=== PATIENT | female | born 1960 | race Caucasian/White ===

== ENCOUNTER → 2019-07-28 07:00 | Outpatient (CLI) | payer OTHER, SELFPAY ==
--- NOTE | ~2019-07-28 | MM_ITS ---
EXAMINATION: MM screening norberto BI w anshul HISTORY: Screening mammogram TECHNIQUE: Craniocaudal and mediolateral oblique 3-D tomosynthesis images were obtained and synthetic 2-D images were generated. CAD analysis was submitted and interpreted. COMPARISON: 05/19/2018, 04/05/2017, 05/13/2015 bilateral digital screening mammogram examinations BREAST PARENCHYMAL COMPOSITION: The breasts are heterogeneously dense, which may obscure small masses . FINDINGS: There is no evidence of suspicious mass, calcification, or architectural distortion to sugg est malignancy in either breast. There has been no suspicious interval change. IMPRESSION: 1. No mammographic evidence of malignancy. 2. Recommend routine screening mammography in one year. BI-RADS Category 1: Negative Reviewed, dictated and finalized at location A. ETHYLENE COMBINER
== END ==
PROVIDERS: Visit Provider Obstetrics & Gynecology Gynecology
DX: Z12.31 Encounter for screening mammogram for malignant neoplasm of breast (principal)
CPT/HCPCS: 77063; 77067

== ENCOUNTER 2019-08-28 13:45 | Emergency (ER) | payer OTHER, SELFPAY ==
[2019-08-28 14:00] VITALS: BP 122/74; PULSE 93; RESP 18; TEMP 36.6; O2SAT 99
--- NOTE | 2019-08-28 14:03 | ED.SKABFB ---
HPI - Skin/Abscess/Foreign Bdy General Chief complaint: Skin/Abscess/Foreign Body Stated complaint: face break out Time Seen by Provider: 08/28/19 14:03 Source: patient and RN notes reviewed History of Present Illness HPI narrative: Patient is a 58-year-old female that presents the urgent care with complaints of a breakout to the face. Patient states she is had a small zit to the chin and then it broke out on the forehead. Patient states it is painful to touch. Patient is been putting Neosporin on it. Patient also reports of a sore throat. States that symptoms started on Wednesday. Denies of any known fevers. No acute distress noted. Patient read the plan of care. Related Data Home Medications Medication Instructions Recorded Confirmed levothyroxine [Synthroid] 100 mcg PO DAILY 08/28/19 08/28/19 Allergies Allergy/AdvReac Type Severity Reaction Status Date / Time No Known Allergies Allergy Verified 08/28/19 14:07 Review of Systems Review of Systems: Narrative: CONSTITUTIONAL: Denies fever, chills, or sweats. EYES: Denies visual changes, redness, or discharge. ENT: Reports of sore throat CARDIOVASCULAR: Denies chest pain, palpitations, or edema. RESPIRATORY: Denies cough or dyspnea. GASTROINTESTINAL: Denies abdominal pain, nausea, vomiting, or diarrhea. GENITOURINARY: Denies dysuria or hematuria. SKIN: Reports of oozing lesions on the face MUSCULOSKELETAL: Denies back pain, joint pain, or myalgia. NEUROLOGIC: Denies headache, numbness, or weakness. All other systems reviewed are negative, except as documented in HPI. PMFSH Comments At the time of my signature, I reviewed and agree with the nursing past medical, surgical, social, and family history. There is no relevant family history pertinent to the patient complaint. Exam Narrative: Exam Narrative: GENERAL: This is a well-nourished, well-developed patient, in no apparent distress. HEAD: normocephalic, atraumatic. EYES: PERRL. Sclera clear/white. Vision is grossly intact. EARS: External ears normal NOSE: External nose normal with no obvious nasal discharge, nares without redness, no rhinorrhea. THROAT: Mucous membranes moist, moderate erythema noted posterior oropharynx with moderate postnasal drainage. NECK: Neck supple CARDIOVASCULAR: Regular rate and rhythm without murmurs, gallops, or rubs. RESPIRATORY: Clear to auscultation. Breath sounds equal bilaterally. No wheezes, rales, or rhonchi. SKIN: Multiple oozing/pustular, crusted lesions noted to the forehead, nose, chin?lesions cross the midline. NEURO: awake, alert, and oriented to person, place and time. There were no obvious focal neurologic abnormalities. EXTREMITIES: No clubbing, cyanosis, or edema. Course Vital Signs Vital signs: Vital Signs Temperature 98 F 08/28/19 14:00 Pulse Rate 93 08/28/19 14:00 Respiratory Rate 18 08/28/19 14:00 Blood Pressure 122/74 08/28/19 14:00 Pulse Oximetry 99 08/28/19 14:00 Temperature 98 F 08/28/19 14:00 Pulse Rate 93 08/28/19 14:00 Respiratory Rate 18 08/28/19 14:00 Blood Pressure 122/74 08/28/19 14:00 Pulse Oximetry 99 08/28/19 14:00 Reviewed MDM - Skin/Abscess/Foreign Bdy MDM Narrative Medical decision making narrative: Reviewed lab results with the patient. She is aware that strep swab was negative. Educated her on culture we will call within 72 hours if culture is positive and antibiotics are necessary. Advised the patient to complete oral antibiotic for impetigo. Make sure to eat and drink with the medication and avoid dairy products with the pill. Use cream as directed applying with gloves or Q-tip. Use a warm wash rag and plain soap to wash the face twice a day. Make sure to use a new wash rag with each wash. Follow-up with PCP within 2 to 5 days or for worsening symptoms or failure to improve. Differential Diagnosis Differential diagnosis: Likely abscess of skin or subcutaneous tissue, viral exanthem, dermatophytosis,
== END 2019-08-28 14:25 | disposition home or self-care (01) ==
PROVIDERS: Emergency Provider Nurse Practitioner Family
DX: L01.00 Impetigo, unspecified (principal); E03.9 Hypothyroidism, unspecified
CPT/HCPCS: 87081; 87880; 99213; G0463

== ENCOUNTER → 2020-08-02 10:17 | Outpatient (CLI) | payer OTHER, SELFPAY ==
--- NOTE | ~2020-08-02 | DEXA_ITS ---
Bone Density Report Name: Katie Tang Age: 59 Sex: Female Ethnicity: White Date of : 1960 Indication: osteopenia; postmenopausal Referring Provider: DEBORAH, SULAIMAN Study: Bone densitometry was performed. Exam Date: August 02, 2020 Accession number: [id number] Bone Density: Region BMD T-score Z-score Classification AP Spine (L1-L4) 0.899 -1.3 0.0 Osteopenia Femoral Neck (Left) 0.731 -1.1 0.2 Osteopenia Total Hip (Left) 0.827 -0.9 -0.1 Normal Femoral Neck (Right) 0.691 -1.4 -0.2 Osteopenia Total Hip (Right) 0.804 -1.1 -0.3 Osteopenia Total Hip Mean 0.816 -1.0 -0.2 Normal World Health Organization criteria for BMD impression classify patients as: Normal (T-score at or above -1.0), Osteopenia (T-score between -1.0 and -2.5), or Osteoporosis (T-score at or below -2.5). 10-year Fracture Risk(1): Major Osteoporotic Fracture 7.5% Hip Fracture 0.6% Reported Risk Factors: [place] (), Neck BMD=0.691, BMI=26.2 (1) FRAX(R) Version 3.08. Fracture probability calculated for an untreated patient. Fracture probability may be lower if the patient has received treatment. Previous Exams: Region Exam Age BMD T-score BMD Change BMD Change Date g/cm2 vs Baseline vs Previous AP Spine(L1-L4) 08/02/2020 59 0.899 -1.3 -0.054* 0.009 02/25/2018 57 0.890 -1.4 -0.063* 0.018 05/13/2015 54 0.872 -1.6 -0.081* -0.081* 04/22/2011 50 0.953 -0.9 Total Hip(Left) 08/02/2020 59 0.827 -0.9 -0.031* -0.050* 02/25/2018 57 0.877 -0.5 0.019 0.003 05/13/2015 54 0.874 -0.6 0.016 0.016 04/22/2011 50 0.858 -0.7 Total Hip(Right) 08/02/2020 59 0.804 -1.1 -0.067* -0.026 02/25/2018 57 0.830 -0.9 -0.041* -0.008 05/13/2015 54 0.838 -0.8 -0.033* -0.033* 04/22/2011 50 0.872 -0.6 *Denotes significance at 95% confidence level, LSC for AP Spine = 0.022 g/cm2, LSC for Total Hip = 0.027 g/cm2 Clinical Information Provided by Patient: Has used the following medications: Vitamin D Patient maximum height was 65.5 Menopause Age: 50 No regular weight bearing exercise Drinks caffeinated beverages Onset of menses at age 17 Number of children 3 Impression: The patient has low bone mass, based on the Right Femoral Neck T-score. The patient has an estimated
--- NOTE | ~2020-08-02 | MM_ITS ---
EXAMINATION: MM screening norberto BI w anshul HISTORY: Screening TECHNIQUE: Craniocaudal and mediolateral oblique 3-D tomosynthesis images were obtained and synthetic 2-D images were generated. CAD analysis was submitted and interpreted. COMPARISON: Comparison to multiple prior studies sequentially, with oldest reviewed study dated 04/16. BREAST PARENCHYMAL COMPOSITION: The breasts are heterogeneously dense, which may obscure small masses . FINDINGS: There is no evidence of suspicious mass, calcification, or architectural distortion to sugg est malignancy in either breast. There has been no suspicious interval change. IMPRESSION: 1. No mammographic evidence of malignancy. 2. Recommend routine screening mammography in one year. BI-RADS Category 1: Negative Reviewed, dictated and finalized at location A. CREWMEMBER
== END ==
PROVIDERS: Visit Provider Nurse Practitioner
DX: Z12.31 Encounter for screening mammogram for malignant neoplasm of breast (principal); Z78.0 Asymptomatic menopausal state; M85.89 Other specified disorders of bone density and structure, multiple sites
CPT/HCPCS: 77063; 77067; 77080

== ENCOUNTER → 2021-09-10 15:01 | Outpatient (CLI) | payer OTHER, SELFPAY ==
--- NOTE | ~2021-09-10 | MM_ITS ---
EXAMINATION: MM screening norberto BI w anshul HISTORY: Screening mammogram, family history of breast cancer in her sister. TECHNIQUE: Craniocaudal and mediolateral oblique 3-D tomosynthesis images were obtained and synthetic 2-D images were generated. CAD analysis was submitted and interpreted. COMPARISON: 08/02/2020, 07/28/2019, 05/19/2018 BREAST PARENCHYMAL COMPOSITION: The breasts are heterogeneously dense, which may obscure small masses . FINDINGS: There is no suspicious mass, calcification, or architectural distortion to suggest malignan cy in either breast. There has been no suspicious interval change. IMPRESSION: 1. No mammographic evidence of malignancy. 2. Recommend routine screening mammography in one year. BI-RADS Category 1: Negative Reviewed, dictated and finalized at location A.
== END ==
PROVIDERS: Visit Provider Obstetrics & Gynecology Gynecology
DX: Z12.31 Encounter for screening mammogram for malignant neoplasm of breast (principal)
CPT/HCPCS: 77063; 77067

== ENCOUNTER → 2022-10-23 12:54 | Outpatient (CLI) | payer OTHER, SELFPAY ==
--- NOTE | ~2022-10-23 | DEXA_ITS ---
Bone Density Report Name: JOSE ROSE Age: 62 Sex: Female Ethnicity: White Date of : 1960 Indication: osteopenia; postmenopausal Referring Provider: DEBORAH, SULAIMAN Study: Bone densitometry was performed. Exam Date: October 23, 2022 Accession number: [id number] Bone Density: Region BMD T-score Z-score Classification AP Spine (L1-L4) 0.884 -1.5 0.0 Osteopenia Femoral Neck (Left) 0.721 -1.2 0.2 Osteopenia Total Hip (Left) 0.840 -0.8 0.2 Normal Femoral Neck (Right) 0.682 -1.5 -0.2 Osteopenia Total Hip (Right) 0.801 -1.2 -0.2 Osteopenia Total Hip Mean 0.821 -1.0 0.0 Normal World Health Organization criteria for BMD impression classify patients as: Normal (T-score at or above -1.0), Osteopenia (T-score between -1.0 and -2.5), or Osteoporosis (T-score at or below -2.5). 10-year Fracture Risk(1): Major Osteoporotic Fracture 8.4% Hip Fracture 0.7% Reported Risk Factors: [place] (), Neck BMD=0.682, BMI=25.5 (1) FRAX(R) Version 3.08. Fracture probability calculated for an untreated patient. Fracture probability may be lower if the patient has received treatment. Previous Exams: Region Exam Age BMD T-score BMD Change BMD Change Date g/cm2 vs Baseline vs Previous AP Spine(L1-L4) 10/23/2022 62 0.884 -1.5 -0.069* -0.015 08/02/2020 59 0.899 -1.3 -0.054* 0.009 02/25/2018 57 0.890 -1.4 -0.063* 0.018 05/13/2015 54 0.872 -1.6 -0.081* -0.081* 04/22/2011 50 0.953 -0.9 Total Hip(Left) 10/23/2022 62 0.840 -0.8 -0.018 0.013 08/02/2020 59 0.827 -0.9 -0.031* -0.050* 02/25/2018 57 0.877 -0.5 0.019 0.003 05/13/2015 54 0.874 -0.6 0.016 0.016 04/22/2011 50 0.858 -0.7 Total Hip(Right) 10/23/2022 62 0.801 -1.2 -0.071* -0.003 08/02/2020 59 0.804 -1.1 -0.067* -0.026 02/25/2018 57 0.830 -0.9 -0.041* -0.008 05/13/2015 54 0.838 -0.8 -0.033* -0.033* 04/22/2011 50 0.872 -0.6 *Denotes significance at 95% confidence level, LSC for AP Spine = 0.022 g/cm2, LSC for Total Hip = 0.027 g/cm2 Clinical Information Provided by Patient: Has used the following medications: Vitamin D Patient maximum height was 65.5 Menopause Age: 50 No regular weight bearing exercise Does not regularly consume dairy products Drinks caffeinated beverages
--- NOTE | ~2022-10-23 | MM_ITS ---
EXAMINATION: MM screening norberto BI w anshul HISTORY: Screening mammogram, family history of breast cancer in her sister. TECHNIQUE: Craniocaudal and mediolateral oblique 3-D tomosynthesis images were obtained and synthetic 2-D images were generated. CAD analysis was submitted and interpreted. COMPARISON: 09/10/2021, 08/02/2020, 07/28/2019 BREAST PARENCHYMAL COMPOSITION: The breasts are heterogeneously dense, which may obscure small masses . FINDINGS: No suspicious mass, calcification, or architectural distortion are identified in either kelsea ast to suggest malignancy. There has been no suspicious interval change. IMPRESSION: 1. No mammographic evidence of malignancy. 2. Recommend routine screening mammography in one year. BI-RADS Category 1: Negative Reviewed, dictated and finalized at location A.
== END ==
PROVIDERS: PCP Nurse Practitioner; Visit Provider Nurse Practitioner
DX: Z12.31 Encounter for screening mammogram for malignant neoplasm of breast (principal); M85.88 Other specified disorders of bone density and structure, other site; M85.852 Other specified disorders of bone density and structure, left thigh; M85.851 Other specified disorders of bone density and structure, right thigh
CPT/HCPCS: 77063; 77067; 77080

== ENCOUNTER 2024-02-18 11:29 | Outpatient (CLI) | payer OTHER, SELFPAY ==
--- NOTE | ~2024-02-18 | MM_ITS ---
EXAMINATION: MM screening norberto BI w anshul HISTORY: Screening TECHNIQUE: Craniocaudal and mediolateral oblique 3-D tomosynthesis images were obtained and synthetic 2-D images were generated. CAD analysis was submitted and interpreted. COMPARISON: Comparison to multiple prior studies sequentially, with oldest reviewed study dated 11/2017. BREAST PARENCHYMAL COMPOSITION: Dense: The breasts are heterogeneously dense, which may obscure small masses FINDINGS: There is no evidence of suspicious mass, calcification, or architectural distortion to sugg est malignancy in either breast. There has been no suspicious interval change. IMPRESSION: 1. No mammographic evidence of malignancy. 2. Recommend routine screening mammography in one year. BI-RADS Category 1: Negative Reviewed, dictated and finalized at location B.
== END 2024-02-18 11:30 | disposition home or self-care (01) ==
LOC: MICIMG 11:30
PROVIDERS: PCP Nurse Practitioner Women's Health; Visit Provider Nurse Practitioner Women's Health
DX: Z12.31 Encounter for screening mammogram for malignant neoplasm of breast (principal)
CPT/HCPCS: 77063; 77067

== ENCOUNTER 2024-04-26 06:31 | Day surgery (SDC) | payer OTHER, SELFPAY ==
[2024-03-13 09:44] VITALS: BMI 27.0
[2024-04-10 12:46] VITALS: BMI 25.4
--- NOTE | 2024-04-26 06:40 | WPDANESEPPF ---
Anes - Initial Pre Proc Eval Procedure: Operation Date: 04/26/24 08:30 Proposed Procedures p Diagnostic Colonoscopy - Thomas Moreno MD Date/Time: 04/26/24 06:40 Surgeon: Thomas Moreno MD Pre Op Diagnosis: Other Fecal Abnormalities Patient Data Age: 63 Gender: F Height: 1.68 m Weight: 71.5 kg Allergies Allergy/AdvReac Type Severity Reaction Status Date / Time No Known Allergies Allergy Verified 04/26/24 07:16 Home Medications Medication Instructions Recorded Confirmed Type levothyroxine 100 mcg tablet 100 mcg PO DAILY 08/28/19 04/26/24 History (Synthroid) cholecalciferol (vitamin D3) 50 50 mcg PO DAILY 04/10/24 04/26/24 History mcg (2,000 unit) capsule (Vitamin D3) Patient hx anesthesia problems: none Family hx anesthesia problems: none Results Review: All pre-operative results and documents have been reviewed as part of the pre-operative evaluation. [facility] Social History Social History Smoking status: Never smoker Alcohol intake: current Drinks per week: 1 Substance use type: does not use Living arrangements: with family Spiritual care concerns: No Anes - Eval Final PreProcedure Day of Procedure 04/26/24 06:40 Patient weight: overweight Heart: regular rate and rhythm Lungs: clear to auscultation Airway: Mallampati scale class II Neurological: alert and oriented Last oral intake: >/= 8 hours ASA classification: II Emergent: no Anesthetic plan: proceed Anesthesia type and monitoring: general GIVS and standard monitoring Results Review: All pre-operative results and documents have been reviewed as part of the pre-operative evaluation. Informed Consent: The patient's anesthetic plan and its attendant risks and benefits were discussed with the patient/family/POA. Questions were solicited and answers provided to the satisfaction of the patient/family/POA.
[2024-04-26 07:19] VITALS: BP 113/72; PULSE 77; RESP 17; TEMP 36.2; O2SAT 99; BMI 25.4
[2024-04-26] MEDS: LACTATED RINGERS 1,000 ML 150 ML IV CONT (07:30)
--- NOTE | 2024-04-26 07:43 | PM.HPGS ---
History of Present Illness History of Present Illness Consent: Risks, benefits, and alternatives have been discussed and questions answered. Patient agrees to proceed with procedure. Chief complaint: Positive Cologuard test Narrative: Katie Tang is a 63 year old female referred for colonoscopy. Patient's current weight appetite and bowel movements are normal. She denies abdominal pain. Patient has had no bleeding. Family history is noncontributory. Recent Cologuard test was found to be positive. Review of Systems Review of Systems: All systems reviewed & are unremarkable except as noted in HPI and below PMFSH Social History Social History Smoking status: Never smoker Alcohol intake: current Drinks per week: 1 Substance use type: does not use Living arrangements: with family Spiritual care concerns: No Meds Home Medications and Allergies Home Medications Medication Instructions Recorded Confirmed Type levothyroxine 100 mcg tablet 100 mcg PO DAILY 08/28/19 04/26/24 History (Synthroid) cholecalciferol (vitamin D3) 50 50 mcg PO DAILY 04/10/24 04/26/24 History mcg (2,000 unit) capsule (Vitamin D3) Allergies Allergy/AdvReac Type Severity Reaction Status Date / Time No Known Allergies Allergy Verified 04/26/24 07:16 Vital Signs Vital Signs - 24 hr 04/26/24 07:19 Temperature 97.2 F L Pulse Rate 77 Respiratory Rate 17 Blood Pressure 113/72 Pulse Oximetry 99 Oxygen Delivery Room Air Exam Narrative: Physical exam reveals patient to be alert. Signs stable. HEENT exam is unremarkable. Patient is anicteric. Lungs are clear to auscultation and to percussion. Heart is without murmur or extra sounds. Abdomen bowel sounds are present soft nontender with no organomegaly. Digital external rectal exam is normal. Assessment and Plan Assessment and plan (1) Positive colorectal cancer screening using Cologuard test: Code(s): R19.5 - Other fecal abnormalities Status: Acute Assessment and Plan: Patient recently had Cologuard test that was positive. for this reason screening colonoscopy will be performed today.
[2024-04-26 08:18] VITALS: BP 107/75; PULSE 73; RESP 16; O2SAT 97
[2024-04-26 08:28] VITALS: BP 97/69; PULSE 70; RESP 15; O2SAT 99
[2024-04-26 08:38] VITALS: BP 106/74; PULSE 65; RESP 15; O2SAT 99
--- NOTE | 2024-04-26 12:29 | WPDANESPN ---
Anes - Prog Note Post-Op Date/Time: 04/26/24 12:29 Cardiovascular status: normal Respiratory status: normal Airway patency: baseline Mental status: baseline Post-Op hydration status: normal Vital Signs: Last Vital Signs Temp 36.2 C L 04/26/24 07:19 Pulse 65 04/26/24 08:38 Resp 15 04/26/24 08:38 BP 106/74 04/26/24 08:38 Pulse Ox 99 04/26/24 08:38 O2 Del Method Room Air 04/26/24 08:38 Pain Score (VAS): 0 I/O: Intake & Output 04/25/24 04/26/24 04/26/24 23:59 07:59 15:59 Intake Total 200 Balance 200 Post-procedural complaints: none Patient Feedback: Patient satisfied with anesthetic care. Other Findings: Patient vital signs back to baseline. Patient denies nausea and vomiting. Patient's pain under control. Patient OK for discharge.
== END 2024-04-26 08:44 | disposition home or self-care (01) ==
PROVIDERS: Visit Provider Internal Medicine Gastroenterology
PROC: 0DJD8ZZ Inspection of Lower Intestinal Tract, Via Natural or Artificial Opening Endoscopic (ICD-10-PCS; CPT 45378; principal; 2024-04-26 08:30)
DX: R19.5 Other fecal abnormalities (principal); K57.30 Diverticulosis of large intestine without perforation or abscess without bleeding; K64.8 Other hemorrhoids
CPT/HCPCS: 45378